=== PATIENT | female | born 1955 | race Caucasian/White ===

== ENCOUNTER 2016-06-25 05:57 | Day surgery (SDC) | payer OTHER ==
[2016-06-24 18:20] VITALS: BMI 24.6
[2016-06-25] VITALS (14 sets, daily range): BP systolic 133–179; BP diastolic 69–90; PULSE 64–92; RESP 12–23; Ht 157.5 cm; Wt 60.8 kg
[~2016-06-25] VITALS: Ht 157.5 cm; Wt 60.8 kg
[2016-06-25] MEDS ORDERED: SOD CHLORIDE 0.9% 1,000 ML IV SCH (07:00)
[2016-06-25] MEDS ORDERED: METOPROLOL 5 MG INJ ONE (07:00)
[2016-06-25] MEDS ORDERED: CEFAZOLIN 2 GM/50 ML (PMX) 50 ML IVPB ONE (07:00)
[2016-06-25] MEDS ORDERED: CEFAZOLIN 1 GM INJ ONE (07:00)
[2016-06-25] MEDS ORDERED: SITA100T8 (07:22)
[2016-06-25] MEDS ORDERED: GEMF600T60 (07:22)
[2016-06-25] MEDS ORDERED: METF500T4 (07:22)
[2016-06-25] MEDS ORDERED: LOSA50TA6 (07:22)
[2016-06-25] MEDS ORDERED: BUPIVACAINE 0.25% (MPF) 30 ML INJ ONE (07:56)
[2016-06-25] MEDS ORDERED: MIDAZOLAM 1 MG/ML 2 ML INJ ONE (08:09)
[2016-06-25] MEDS ORDERED: LIDOCAINE 2% (SDV) 5 ML INJ ONE (09:08)
[2016-06-25] MEDS ORDERED: ROCURONIUM 50 MG INJ ONE (09:08)
[2016-06-25] MEDS ORDERED: PROPOFOL 20 ML ONE (09:08)
[2016-06-25] MEDS ORDERED: ONDANSETRON 4 MG INJ ONE (09:08)
[2016-06-25] MEDS ORDERED: NEOSTIGMINE 3 MG/3 ML SYRINGE ONE (09:08)
[2016-06-25] MEDS ORDERED: GLYCOPYRROLATE 1 MG INJ ONE (09:08)
[2016-06-25] MEDS ORDERED: LABETALOL HCL 20MG INJ IV PRN (09:30)
[2016-06-25] MEDS ORDERED: FENTAnyl 50 MCG/ML VIAL IV PRN (09:30)
[2016-06-25] MEDS ORDERED: HYDROCODONE/APAP (5/325) TAB PO ONE (09:30)
[2016-06-25] MEDS ORDERED: HYDROmorphONE (0.2 MG/ML) 10ML SYG IV PRN ×2 (09:30)
[2016-06-25] MEDS ORDERED: hydrALAzine 20 MG INJ IV PRN (09:30)
[2016-06-25] MEDS ORDERED: MEPERIDINE 25 MG INJ IV PRN (09:30)
[2016-06-25] MEDS ORDERED: DIPHENHYDRAMINE 50 MG INJ IV PRN (09:30)
[2016-06-25] MEDS: ONDANSETRON 4 MG INJ IV PRN ×2 (09:59→11:41)
--- NOTE | 2016-06-25 10:00 | OPR ---
DATE OF OPERATION: 06/25/2016 INDICATION: This is a 60-year-old female with symptomatic gallstones. She requests surgical excisi on of her gallbladder. Risks, alternatives, benefits, and personnel were discussed with the patient . Patient expressed understanding and consents to the operation. PREOPERATIVE DIAGNOSIS: Symptomatic gallstones. POSTOPERATIVE DIAGNOSIS: Symptomatic gallstones. OPERATION: Laparoscopic cholecystectomy. SURGEON: Luiza Concepcion MD SPECIMEN: Gallbladder. COMPLICATIONS: None. ANESTHESIA: General. PROCEDURE: The patient was taken to the OR and prepped and draped in the usual sterile fashion. Tran rgical timeout was performed. IV antibiotics were given. Infraumbilical transverse incision is mad e with a 15 blade. Dissection cautery was carried down to the fascia which was divided with curved Kelsey scissors, 0 Vicryl U-stitch was placed into the fascia. Balloon Yael trocar was introduced. Pneumoperitoneum was established. Midepigastric 12 mm optical trocar and right upper quadrant and right upper flank 5 mm optical trocars were placed under direct visualization. Upon initial inspect ion, there were some adhesions to the gallbladder. These were taken down bluntly. The cystic duct was identified. The critical view was established. The cystic duct and cystic artery divided using a 35 mm [place] vascular load stapler. The gallbladder was taken off the gallbladder bed. There w as good hemostasis. Additional clips were placed for reinforcement. Gallbladder was retrieved usin g EndoCatch bag. Ports were removed under direct visualization. All 0 Vicryl U-stitch was tied zeus n. Skin was closed using skin dileep. Local anesthesia was injected. Dry dressings were applied. Dictated By: LUIZA CONCEPCION MD SB/JOSELYN Conf#: [id number] DID#: [id number]
== END 2016-06-25 19:12 | disposition home or self-care (01) ==
LOC: SDS 05:57
PROVIDERS: ATTEND Surgery
DX: K80.10 Calculus of gallbladder with chronic cholecystitis without obstruction (principal); E11.9 Type 2 diabetes mellitus without complications; E78.5 Hyperlipidemia, unspecified; I10 Essential (primary) hypertension; E66.9 Obesity, unspecified; Z68.24 Body mass index [BMI] 24.0-24.9, adult
CPT/HCPCS: 82962; 88304; J0690; J1170; J2250; J2405; J2710; J3010